=== PATIENT | female | born 1970 | race Hispanic/Latino ===

== ENCOUNTER 2018-06-25 08:03 | Inpatient (IN) | payer BC, OTHER ==
[2018-06-25 08:03] VITALS: BMI 32.4
--- NOTE | 2018-06-25 08:37 | ED PDOC ---
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 Patient states she believes it to be gallstones, which she has had in the past, but have usually passed naturally. Patient states that the pain radiates to her back and right shoulder. Patient denies vomiting, but has been dry heaving, secondary to her inability to eat. Patient states her first experience with this pain was 20 years ago, and has been intermittent ever since. Patient states she took 600mg ibuprofen for pain at 6 am. Patient denies any fever, chills, headache, dizziness, chest pain, shortness of breath, cough, vomiting, diarrhea, neck pain, urinary/bowel changes, or any other complaint. Time/Duration: 1-3 hours Symptom Onset: Gradual Symptom Course: Unchanged Quality: Cramping Context: Home Past Medical History - Provider Review Nursing Documentation Reviewed: Yes - Infectious Disease Hx of Infectious Diseases: None - Tetanus Immunization Tetanus Immunization: Up to Date - Reproductive Menopause: No - Past Medical History Past Medical History: No Previous - Cardiac Hx Cardiac Disorders: No Hx Pacemaker: No - Pulmonary Hx Respiratory Disorders: No - Neurological Hx Neurological Disorder: No - HEENT Hx HEENT Disorder: No - Renal Hx Renal Disorder: No - Hematological/Oncological Hx Blood Disorders: No - Musculoskeletal/Rheumatological Hx Musculoskeletal Disorders: No - Gastrointestinal Other/Comment: diverculosis - Genitourinary/Gynecological Hx Genitourinary Disorders: No - Psychiatric Hx Emotional Abuse: No Hx Physical Abuse: No Hx Substance Use: No - Surgical History Hx Tubal Ligation: Yes (essure) Other/Comment: essure - Anesthesia Hx Anesthesia Reactions: No - Suicidal Assessment Feels Threatened In Home Enviroment: No Family/Social History - Physician Review Nursing Documentation Reviewed: Yes Family/Social History: No Known Family HX Smoking Status: Unknown If Ever Smoked Hx Alcohol Use: Yes (SOCIALLY) Hx Substance Use: No Hx Substance Use Treatment: No Allergies/Home Meds Allergies/Adverse Reactions: Allergies No Known Allergies Allergy (Verified 06/11/13 12:29) Home Medications: Home Meds Medication Instructions Recorded Confirmed Iron 65 65 mg PO DAILY 06/25/18 06/25/18 Magnesium 400 400 mg PO HS 06/25/18 06/25/18 Multivitamin Therapeutic Tab 1 tab PO DAILY 06/25/18 06/25/18 [Thera Tab] Review of Systems - Physician Review All systems were reviewed & negative as marked: Yes - Review of Systems Constitutional: Normal. absent: Fevers, Night Sweats Eyes: Normal ENT: Normal Respiratory: Normal. absent: SOB, Cough Cardiovascular: Normal. absent: Chest Pain Gastrointestinal: Normal, Appetite Changes (Has been unable to eat since onset of pain). absent: Diarrhea Genitourinary Female: Normal. absent: Urine Output Changes Musculoskeletal: Normal, Back Pain (Pain radiates from RUQ to back). absent: Neck Pain Skin: Normal Neurological: Normal. absent: Headache, Dizziness Endocrine: Normal Hemo/Lymphatic: Normal Psychiatric: Normal Physical Exam - Physical Exam Narrative Physical Exam (Text): 06/25/18 08:40 Gen: VS reviewed, alert, well developed, well nourished, nontoxic, mild distress. ENT: normal pharynx. Eye: EOMI, PERRL. Neck: no JVD, supple, no adenopathy. CV: regular rate, regular rhythm, no rubs, no murmur, no gallops, S1, S2, pulses equal and strong. Pulm: no distress, clear to auscultation, no wheeze, no rhonchi, breath sounds equal, no rales. Abd: no guarding, no rebound, no rigidity, mild to moderate RUQ tenderness, positive Brar's sign Ext: no edema. Skin: good color, no rash, no cyanosis. Psych: responds appropriately to questions, normal affect. Neuro: oriented x 3, CN2-12 intact grossly, motor intact, sensation intact. Vital Signs Reviewed: Yes Vital Signs Temp Pulse Resp BP Pulse Ox 06/25/18 11:40 98.0 F 70 18 100 06/25/18 11:39 98.0 F 70 18 128/77 100 06/25/18 08:19 98.2 F 66 18 131/84 100 Temperature: Afebrile Blood Pressure: Normal Pulse: Regular Respiratory Rate: Normal Appearance: Positive for: Well-Appearing, Non-Toxic, Comfortable Pain Distress: None Mental Status: Positive for: Alert and Oriented X 3 Medical Decision Making ED Course and Treatment: 06/25/18 08:42 Impression: 47 year old female presents to the emergency department with RUQ pain. Plan: -- Labs -- US -- Reassess and disposition Prior Visits: Notes and results from previous visits were reviewed. Progress Notes: 06/25/18 10:38 awaiting call from pcp dr. dowd. case discussed with surgical product sales consultant and will see pt in consultation. 06/25/18 11:[address] dowd, patient to be admitted for acute cholecystitis. Dr. Dowd would like Dr. Peters for GI consult and is ok with Dr. Bo for surgery consult. - Lab Interpretations Lab Results: 06/25/18 08:46 06/25/18 08:46 Lab Results 06/25/18 11:02: Blood Type A POSITIVE, Antibody Screen Negative, BBK History Checked No verified bt 06/25/18 08:46: Sodium 141, Potassium 4.0, Chloride 106, Carbon Dioxide 24, Anion Gap 15, BUN 12, Creatinine 0.5 L, Est GFR ( Amer) > 60, Est GFR ( Non-Af Amer) > 60, Random Glucose 93, Calcium 8.6, Total Bilirubin 0.4, AST 21, ALT 28, Alkaline Phosphatase 46, Total Protein 6.5, Albumin 3.7, Globulin 2.8, Albumin/Globulin Ratio 1.3, Lipase 39 06/25/18 08:46: WBC 10.5, RBC 4.79, Hgb 11.4 L, Hct 36.1, MCV 75.4 L, MCH 23.8 L , MCHC 31.6, RDW 17.7 H, Plt Count 271, MPV 9.8, Gran % 77.0 H, Lymph % (Auto) 11.7 L, Karnes % (Auto) 9.3 H, Eos % (Auto) 1.8, Baso % (Auto) 0.2, Gran # 8.11 H , Lymph # (Auto) 1.2, Karnes # (Auto) 1.0 H, Eos # (Auto) 0.2, Baso # (Auto) 0.02 - RAD Interpretation Narrative RAD Interpretations (Text): 06/25/18 10:45 Gallbladder US reviewed by radiologist, shows: Cholelithiasis. Presumptive evidence for acute cholecystitis. Radiology Orders: 06/25/18 08:33 GALLBLADDER & COMMON DUCT [US] Stat Corn Husk Baler: Radiologist - EKG Interpretation EKG Interpretation (Text): 06/25/18 11:40 1134: sinus gema at 55 bpm, nml qrs, nml axis, no acute sttw abn Interpreted by ED Physician: Yes - Medication Orders Current Medication Orders: Hydromorphone HCl (Dilaudid) 0.5 mg IVP Q4H PRN PRN Reason: Pain, moderate (4-7) Last Admin: 06/25/18 15:29 Dose: 0.5 mg RONNIE Pain Assessment Document 06/25/18 15:29 LMN (Rec: 06/25/18 15:29 LMN [id number]) Pain Reassessment Is this a pain reassessment? No Presence of Pain Presence of Pain Yes IVP Administration Document 06/25/18 15:29 LMN (Rec: 06/25/18 15:29 LMN [id number]) Charges for Administration # of IVP Administrations 1 Re-Assess: RONNIE Pain Assessment Document 06/25/18 16:29 LMN (Rec: 06/25/18 17:07 LMN [id number]) Pain Reassessment Is this a pain reassessment? Yes Presence of Pain Presence of Pain Yes Pain Scale Used Pain Scale Used Numeric Location Left, Right or Bilateral Right Upper or Lower Lower Pain Location Body Site Abdomen Back Description Description Constant Intensity of Pain at present 7 Pain Behavior Moaning Irritability Grasping Site Rubbing Site Facial Grimacing Alleviating Factors/Management Medication Techniques Pain not relieved and LIP/MD was No notified Lactated Ringer's (Lactated Ringer's) 1,000 mls @ 125 mls/hr IV .Q8H BIJAN Last Admin: 06/25/18 13:51 Dose: 125 mls/hr eMAR Start Stop Document 06/25/18 13:51 LMN (Rec: 06/25/18 13:52 LMN [id number]) Intravenous Solution Start Date 06/25/18 Start Time 13:52 Ondansetron HCl (Zofran Inj) 4 mg IVP Q6 PRN PRN Reason: Nausea/Vomiting Discontinued Medications Sodium Chloride (Sodium Chloride 0.9%) 1,000 mls @ 150 mls/hr IV .Q6H40M BIJAN Last Admin: 06/25/18 11:32 Dose: 150 mls/hr eMAR Start Stop Document 06/25/18 11:32 [email or web address] (Rec: 06/25/18 11:33 [email or web address] [id number]) Intravenous Solution Start Date 06/25/18 Start Time 11:33 Ampicillin Sodium/Sulbactam (Sodium 3 gm/ Sodium Chloride) 100 mls @ 100 mls/ hr IVPB STAT STA PRN Reason: Protocol Stop: 06/25/18 11:32 Last Admin: 06/25/18 11:28 Dose: 100 mls/hr eMAR Start Stop Document 06/25/18 11:28 [email or web address] (Rec: 06/25/18 11:29 [email or web address] [id number]) Intravenous Solution Start Date 06/25/18 Start Time 11:29 Ketorolac Tromethamine (Toradol) 30 mg IVP STAT STA Stop: 06/25/18 09:24 Last Admin: 06/25/18 09:30 Dose: 30 mg MAR Pain Assessment Document 06/25/18 09:30 [email or web address] (Rec: 06/25/18 11:29 [email or web address] [id number]) Pain Reassessment Is this a pain reassessment? No Sleep Is patient sleeping during reassessment? No Presence of Pain Presence of Pain Yes Pain Scale Used Pain Scale Used Numeric Location Left, Right or Bilateral Right Upper or Lower Upper Pain Location Body Site Abdomen Description Description Constant Intensity of Pain at present 8 Pain Behavior Facial Grimacing Alleviating Factors/Management Medication Techniques Alleviating Factors Medication IVP Administration Document 06/25/18 09:30 [email or web address] (Rec: 06/25/18 11:29 [email or web address] [id number]) Charges for Administration # of IVP Administrations 1 Morphine Sulfate (Morphine) 2 mg IVP Q4 PRN PRN Reason: Pain, severe (8-10) Last Admin: 06/25/18 12:50 Dose: 2 mg MAR Pain Assessment Document 06/25/18 12:50 LMN (Rec: 06/25/18 12:51 LMN [id number]) Pain Reassessment Is this a pain reassessment? No Presence of Pain Presence of Pain Yes Pain Scale Used Pain Scale Used Numeric Location Left, Right or Bilateral Right Upper or Lower Lower Pain Location Body Site Abdomen Back Description Description Constant Intensity of Pain at present 9 Pain Behavior Moaning Irritability Rubbing Site Perspiration Facial Grimacing Alleviating Factors/Management Medication Techniques IVP Administration Document 06/25/18 12:50 LMN (Rec: 06/25/18 12:51 LMN [id number]) Charges for Administration # of IVP Administrations 1 Re-Assess: RONNIE Pain Assessment Document 06/25/18 13:50 LMN (Rec: 06/25/18 13:52 LMN [id number]) Pain Reassessment Is this a pain reassessment? Yes Presence of Pain Presence of Pain No Ondansetron HCl (Zofran Inj) 4 mg IVP STAT STA Stop: 06/25/18 12:36 Last Admin: 06/25/18 12:45 Dose: 4 mg IVP Administration Document 06/25/18 12:45 LMN (Rec: 06/25/18 12:45 LMN [id number]) Charges for Administration # of IVP Administrations 1 - Scribe Statement The provider has reviewed the documentation as recorded by the Scribe Nhan Romero All medical record entries made by the Scribe were at my direction and personally dictated by me. I have reviewed the chart and agree that the record accurately reflects my personal performance of the history, physical exam, medical decision making, and the department course for this patient. I have also personally directed, reviewed, and agree with the discharge instructions and disposition. Disposition/Present on Arrival - Present on Arrival Any Indicators Present on Arrival: No History of DVT/PE: No History of Uncontrolled Diabetes: No Urinary Catheter: No History of Decub. Ulcer: No History Surgical Site Infection Following: None - Disposition Have Diagnosis and Disposition been Completed?: Yes Diagnosis: Cholelith Disposition: HOSPITALIZED Disposition Time: 17:33 Patient Plan: ICU Patient Problems: Current Active Problems Problem Status Onset Sepsis Acute Condition: FAIR
[2018-06-25 08:56] LABS: BASO # 0.02 K/mm3 (0.0-2.0); BASO % 0.2 % (0.0-3.0); EOS # 0.2 (0.0-0.7); EOS % 1.8 % (1.5-5.0); GRAN # 8.11 (1.4-6.5); HEMOGLOBIN 11.4 g/dL (12.0-16.0); LYMPH # 1.2 (1.2-3.4); LYMPH % 11.7 % (22.0-35.0); MEAN CELL VOLUME 75.4 fl (80.0-105.0); MEAN CORPUSCULAR HEMOGLOBIN 23.8 pg (25.0-35.0); MEAN CORPUSCULAR HGB CONC 31.6 g/dl (31.0-37.0); MEAN PLATELET VOLUME 9.8 fl (7.0-11.0); MONO % 9.3 % (1.0-6.0); RBC 4.79 10^6/uL (3.5-6.1); RED CELL DISTRIBUTION WIDTH 17.7 % (11.5-14.5); WHITE BLOOD COUNT 10.5 10^3/ul (4.5-11.0)
[2018-06-25 09:08] LABS: ALB/GLOB RATIO 1.3 (1.1-1.8); ALBUMIN 3.7 g/dL (3.0-4.8); ALT/SGPT 28 U/L (7-56); AST/SGOT 21 U/L (14-36); BLOOD UREA NITROGEN 12 mg/dL (7-21); CALCIUM 8.6 mg/dL (8.4-10.5); GFR AFRICAN-AMERICAN > 60; GFR NON-AFRICAN AMERICAN > 60; LIPASE 39 U/L (23-300)
--- NOTE | 2018-06-25 10:15 | US ---
Date of service: 06/25/2018 HISTORY: pain, hx gllastones COMPARISON: None. TECHNIQUE: Sonographic evaluation of the right upper quadrant of the abdomen. FINDINGS: LIVER: Measures 17.3 cm in length. Patent portal vein. Portal venous flow: Hepatopetal. Unremarkable echogenicity of the liver parenchyma. No mass. No intrahepatic bile duct dilatation. GALLBLADDER: Cholelithiasis. Gallbladder wall edema and positive sonographic Brar's sign. Pericholecystic fluid identified. 3.3 cm stone lodged in the gallbladder neck. COMMON BILE DUCT: Measures 7.8 mm. No stones. No dilatation. PANCREAS: Unremarkable as visualized. No mass. No ductal dilatation. RIGHT KIDNEY: Measures 4.8 x 12.3 cm in length. Normal echogenicity. No calculus, mass, or hydronephrosis. AORTA: No aneurysmal dilatation. IVC: Unremarkable. OTHER FINDINGS: None . IMPRESSION: Cholelithiasis. Presumptive evidence for acute cholecystitis.
[2018-06-25] MEDS ORDERED: Sodium Chloride 0.9% 1,000 ML IV SCH (10:45)
[2018-06-25] MEDS ORDERED: Morphine 2 mg/ml ISec IVP PRN (12:37)
--- NOTE | 2018-06-25 12:55 | CP.PCM.CON ---
History of Present Illness - History of Present Illness History of Present Illness: HPI: Patient is a 47y.o. female with PMH of cholelithiasis who presents complaining of RUQ abdominal pain. She states the onset of pain was two nights ago. She denies eating a meal prior to the onset, and denies any aggravating factors. She describes the pain as intermittent, 8/10 in severity, localized to the RUQ and nonradiating. She reports multiple prior occurrences of abdominal pain similar to this episode. She has had around 5 episodes over the past 19 years. She complains of nausea and retching. She denies fevers, chills, constipation, or diarrhea. PMHx: cholelithiasis, diverticulosis, iron def. anemia PSurgHx: abdominoplasty (2003), R sided lumpectomy for lipoma, 2 C-sections Medications: iron supplement Allergies: NKDA Social: former smoker, occasional alcohol use, denies illicit drug use Family Hx: mother of colon cancer (age 65) In the ED, pt received Toradol for pain control, IVF, and Unasyn. Ultrasound demonstrated 3.3 cm stone in gallbladder neck, common bile duct 7.8 mm, pericholecystic fluid, pos sonographic Brar's sign, and gallbladder wall edema , suggestive of acute cholecystitis. Review of Systems - Constitutional Constitutional: absent: Chills, Fever - Cardiovascular Cardiovascular: absent: Chest Pain - Respiratory Respiratory: absent: Dyspnea - Gastrointestinal Gastrointestinal: Abdominal Pain, Nausea. absent: Constipation, Diarrhea, Vomiting Past Patient History - Tetanus Immunizations Tetanus Immunization: Up to Date - Past Social History Smoking Status: Unknown If Ever Smoked - CARDIAC Hx Cardiac Disorders: No Hx Pacemaker: No - PULMONARY Hx Respiratory Disorders: No - NEUROLOGICAL Hx Neurological Disorder: No - HEENT Hx HEENT Problems: No - RENAL Hx Chronic Kidney Disease: No - HEMATOLOGICAL/ONCOLOGICAL Hx Blood Disorders: No - MUSCULOSKELETAL/RHEUMATOLOGICAL Hx Musculoskeletal Disorders: No - GASTROINTESTINAL Other/Comment: diverculosis - GENITOURINARY/GYNECOLOGICAL Hx Genitourinary Disorders: No - PSYCHIATRIC Hx Emotional Abuse: No Hx Physical Abuse: No Hx Substance Use: No - SURGICAL HISTORY Hx Tubal Ligation: Yes (essure) Other/Comment: essure - ANESTHESIA Hx Anesthesia Reactions: No Meds Allergies/Adverse Reactions: Allergies Allergy/AdvReac Type Severity Reaction Status Date / Time No Known Allergies Allergy Verified 06/11/13 12:29 - Medications Medications: Current Medications Sodium Chloride (Sodium Chloride 0.9%) 1,000 mls @ 150 mls/hr IV .Q6H40M BIJAN Last Admin: 06/25/18 11:32 Dose: 150 mls/hr Ketorolac Tromethamine (Toradol) 30 mg IVP Q8H PRN PRN Reason: Pain, moderate (4-7) Morphine Sulfate (Morphine) 2 mg IVP Q4 PRN PRN Reason: Pain, severe (8-10) Ondansetron HCl (Zofran Inj) 4 mg IVP Q6 PRN PRN Reason: Nausea/Vomiting Physical Exam - Constitutional Appears: Non-toxic, No Acute Distress - Head Exam Head Exam: ATRAUMATIC, NORMAL INSPECTION, NORMOCEPHALIC - Eye Exam Eye Exam: EOMI, Normal appearance, PERRL. absent: Scleral icterus - ENT Exam ENT Exam: Mucous Membranes Moist, Normal Exam - Neck Exam Neck exam: Positive for: Full Rom, Normal Inspection - Respiratory Exam Respiratory Exam: Clear to Auscultation Bilateral, NORMAL BREATHING PATTERN. absent: Rales, Rhonchi, Wheezes, Respiratory Distress - Cardiovascular Exam Cardiovascular Exam: REGULAR RHYTHM, +S1, +S2 - GI/Abdominal Exam GI & Abdominal Exam: Normal Bowel Sounds, Soft, Tenderness. absent: Distended, Rebound Additional comments: Positive Brar's Sign; tenderness to palpation in RUQ, no rebound tenderness - Extremities Exam Extremities exam: Positive for: full ROM, normal capillary refill, normal inspection, pedal pulses present. Negative for: pedal edema - Back Exam Back exam: FULL ROM, NORMAL INSPECTION - Neurological Exam Neurological exam: Alert, CN II-XII Intact, Oriented x3 - Skin Skin Exam: Dry, Intact, Normal Color, Warm Results - Vital Signs Recent Vital Signs: Last Vital Signs Temp 98.0 F 06/25/18 11:40 Pulse 70 06/25/18 11:40 Resp 18 06/25/18 11:40 BP 128/77 06/25/18 11:39 Pulse Ox 100 06/25/18 11:40 - Labs Result Diagrams: 06/25/18 08:46 06/25/18 08:46 Assessment & Plan - Assessment and Plan (Free Text) Assessment: 47F with PMH of cholelithiasis presents with RUQ abdominal pain. Ultrasound findings suggestive of acute cholecystitis. Plan: -Pt NPO -C/w IVF hydration -Toradol d/c'd, morphine prn for severe pain -Zofran for nausea -Plan for OR for lap blossom -Further recs per Dr. Betzy Hamilton, DO PGY-1
[2018-06-25] MEDS: Lactated Ringer's 1,000 ML IV SCH (13:51)
--- NOTE | 2018-06-25 14:42 | CP.PCM.CON ---
History of Present Illness - History of Present Illness History of Present Illness: Seen and examined at bedside this afternoon, chart reviewed. Request for consult is for Cholelithiasis. HPI: This ia a 47 year old female with PMH of cholelithiasis, came to ER with c/ o RUQ abdominal pain that started two night ago. Denies post prandial pain. Patient endorses that she has had pain similar to this in the past but never went for intervention. She does have N/V, no fever or chills, change in bowel habits(diarrhea or constipation)Abdominal US done in the ER reveal 3.3 cm stone in gallbladder neck, common bile duct 7.8 mm, pericholecystic fluid, pos sonographic Brar's sign, and gallbladder wall edema, suggestive of acute cholecystitis. PMH: cholelithiasis, diverticulosis, Anemia, iron def PSH: abdominoplasty, R sided lumpectomy for lipoma,C-sections x2 Allergies: NKDA MEDS: reviewed as per MAR Social: former smoker, social alcohol use, denies illicit drug use Family Hx: mother of colon cancer ROS: systems reviewed with positive findings, see HPI Past Patient History - Infectious Disease Hx of Infectious Diseases: None - Tetanus Immunizations Tetanus Immunization: Up to Date - Past Social History Smoking Status: Unknown If Ever Smoked - CARDIAC Hx Cardiac Disorders: No Hx Pacemaker: No - PULMONARY Hx Respiratory Disorders: No - NEUROLOGICAL Hx Neurological Disorder: No - HEENT Hx HEENT Problems: No - RENAL Hx Chronic Kidney Disease: No - HEMATOLOGICAL/ONCOLOGICAL Hx Blood Disorders: No - MUSCULOSKELETAL/RHEUMATOLOGICAL Hx Musculoskeletal Disorders: No - GASTROINTESTINAL Other/Comment: diverculosis - GENITOURINARY/GYNECOLOGICAL Hx Genitourinary Disorders: No - PSYCHIATRIC Hx Emotional Abuse: No Hx Physical Abuse: No Hx Substance Use: No - SURGICAL HISTORY Hx Tubal Ligation: Yes (essure) Other/Comment: essure - ANESTHESIA Hx Anesthesia Reactions: No Meds Allergies/Adverse Reactions: Allergies Allergy/AdvReac Type Severity Reaction Status Date / Time No Known Allergies Allergy Verified 06/11/13 12:29 - Medications Medications: Current Medications Lactated Ringer's (Lactated Ringer's) 1,000 mls @ 125 mls/hr IV .Q8H BIJAN Last Admin: 06/25/18 13:51 Dose: 125 mls/hr Morphine Sulfate (Morphine) 2 mg IVP Q4 PRN PRN Reason: Pain, severe (8-10) Last Admin: 06/25/18 12:50 Dose: 2 mg Ondansetron HCl (Zofran Inj) 4 mg IVP Q6 PRN PRN Reason: Nausea/Vomiting Physical Exam - Constitutional Appears: No Acute Distress - Head Exam Head Exam: NORMOCEPHALIC - Eye Exam Eye Exam: Normal appearance. absent: Scleral icterus - ENT Exam ENT Exam: Mucous Membranes Moist - Neck Exam Neck exam: Positive for: Normal Inspection - Respiratory Exam Respiratory Exam: Clear to Auscultation Bilateral, NORMAL BREATHING PATTERN. absent: Respiratory Distress - Cardiovascular Exam Cardiovascular Exam: +S1, +S2 - GI/Abdominal Exam GI & Abdominal Exam: Normal Bowel Sounds, Soft, Tenderness (mild tenderness to RUQ, patient was just medicated). absent: Guarding, Organomegaly, Rebound - Extremities Exam Extremities exam: Positive for: pedal pulses present. Negative for: calf tenderness, pedal edema - Neurological Exam Neurological exam: Alert, Oriented x3 - Skin Skin Exam: Dry, Warm Results - Vital Signs Recent Vital Signs: Last Vital Signs Temp 98.0 F 06/25/18 11:40 Pulse 70 06/25/18 11:40 Resp 18 06/25/18 11:40 BP 128/77 06/25/18 11:39 Pulse Ox 100 06/25/18 11:40 - Labs Result Diagrams: 06/25/18 08:46 06/25/18 08:46 Assessment & Plan - Assessment and Plan (Free Text) Assessment: ASSESSMENT: RUQ abdominal pain Cholelitiaisis with probable Cholecystitis noted on US PLAN: NPO, continue IVF received dose of Ampicillin monitor lft, H/H Zofran prn pain mgt plan for OR later today as per surgery Thank you for this consult and for allowing us to participate in your patient care, further recommendation based upon clinical course. Discussed w/ Dr. Lloyd covering Dr. Peters.
[2018-06-25] MEDS ORDERED: HYDROmorphone 0.5 mg/0.5 ml ISec IVP PRN (15:13)
--- NOTE | 2018-06-25 17:26 | CARD ---
APPROVED REPORT Date of service: 06/25/2018 EKG Measurement Heart [id number] <Conclusion> Sinus bradycardia Otherwise normal ECG
[2018-06-25] MEDS ORDERED: HYDROmorphone 0.5 mg/0.5 ml ISec IVP STA (17:34)
[2018-06-25] MEDS: HYDROmorphone 0.5 mg/0.5 ml ISec IVP PRN ×2 (20:20→23:38)
[2018-06-26] MEDS: HYDROmorphone 0.5 mg/0.5 ml ISec IVP PRN ×2 (03:33→06:07)
[2018-06-26] MEDS: Lactated Ringer's 1,000 ML IV SCH ×2 (05:20→05:21)
[2018-06-26] MEDS ORDERED: Bupivacaine 0.5% Inj(30mL) ONE (07:10)
[2018-06-26] MEDS ORDERED: Iohexol 240 (50 ml) ONE (07:11)
[2018-06-26] MEDS ORDERED: Propofol 10 mg/ml Inj (20 ML) ONE (07:23)
[2018-06-26] MEDS ORDERED: Midazolam 2 MG/2 ML VIAL ONE (07:23)
[2018-06-26] MEDS ORDERED: Rocuronium 10 mg/ml (5 ml) ONE (07:30)
[2018-06-26] MEDS ORDERED: Bupivacaine 0.5% Inj(30mL) IJ ONE ×2 (08:15)
[2018-06-26] MEDS ORDERED: Neostigmine Methylsulfate 3mg/3ml Syringe IV ONE (08:21)
--- NOTE | 2018-06-26 08:27 | CON ---
Copied To: Venkatesh Lloyd MD Attending MD: Venkatesh Lloyd MD ADDENDUM DATE: 06/25/2018 GASTROENTEROLOGY CONSULTATION This consult is for Dr. Peters, Dr. Llyod covering. I have personally examined this patient. This is an addendum to a consultation performed by Aliza Martínez APN. 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 The patient has had episodes of biliary colic in the past. Ultrasound in the emergency room revealed a stone in the gallbladder neck. Her liver enzymes are normal. Ultrasound also showed gallbladder wall thickening and pericholecystic fluid, all consistent with acute cholecystitis. Recommendations are for cholecystectomy. Venkatesh Lloyd MD
[2018-06-26] MEDS ORDERED: Iohexol 240 MG/100 ML SOL IJ ONE (09:00)
--- NOTE | 2018-06-26 09:23 | HP ---
Copied To: Dario Dowd MD Attending MD: Dario Dowd MD HISTORY OF PRESENT ILLNESS: This is a 47-year-old white female with history of cholelithiasis with multiple episodes of acute gallbladder colic over the last 3 weeks. The patient developed into severe right upper quadrant pain with nausea and vomiting, which did not resolve. The patient also was found to have impacted cystic gallbladder stone with acute cholecystitis. The patient is in the preop area being readied for surgery with Dr. Bo. PHYSICAL EXAMINATION: GENERAL: She is a well-developed, well-nourished white female, in no apparent distress this morning. HEENT: Essentially within normal limits. HEART: Regular sinus rhythm. CHEST: Clear to auscultation and percussion. EXTREMITIES: Without cyanosis, clubbing or edema. ABDOMEN: Tender in the right upper quadrant. Positive Brar sign. VITAL SIGNS: The patient is afebrile. LABORATORY DATA: Unremarkable. Normal liver enzymes. White count is 10,500. Temperature is 98.3. IMPRESSION: Acute choledocholithiasis and cholecystitis. Dario Dowd MD
[2018-06-26] MEDS ORDERED: HYDROmorphone 0.5 mg/0.5 ml ISec IVP PRN (10:10)
--- NOTE | 2018-06-26 10:12 | PCM.SURG1 ---
Surgeon's Initial Post Op Note - Surgeon's Notes Surgeon: Dr. Bo Pin Drafter: Dr. Rabago Type of Anesthesia: General Endo Pre-Operative Diagnosis: Acute Cholecystitis Operative Findings: See operative dictation Post-Operative Diagnosis: Acyte cholecystitis Operation Performed: Laparoscopic cholecystectomy Specimen/Specimens Removed: Gallbladder Estimated Blood Loss: EBL {In ML}: 20 Blood Products Given: N/A Drains Used: No Drains Post-Op Condition: Good Date of Surgery/Procedure: 06/26/18 Time of Surgery/Procedure: 10:11
[2018-06-26] MEDS ORDERED: Lactated Ringer's 1,000 ML IV SCH (10:15)
--- NOTE | 2018-06-26 10:38 | RAD ---
Date of service: 06/26/2018 PROCEDURE: Operative cholangiogram HISTORY: laproscopic cholangiogram COMPARISON: TECHNIQUE: 24.2 seconds of fluoro time. Cumulative dose 7.06 mGy. Four images were submitted FINDINGS: There are no filling defects seen in the common duct. Contrast flows into the duodenum without obstruction IMPRESSION: As above
[2018-06-26] MEDS ORDERED: Oxycodone/Acetaminophen 5/325 mg Tab PO PRN (11:34)
--- NOTE | 2018-06-26 12:36 | CP.PCM.PN ---
Subjective - Date & Time of Evaluation Date of Evaluation: 06/26/18 Time of Evaluation: 12:29 - Subjective Subjective: S&E at bedside, chart reviewed, S/p lap cholecystectomy with IOC, show no filling defect in CBD, contrast flow through duodenum with no obstruction. No N/ V , fever or chills. Some post op abdominal discomfort but improvement compared to yesterday as per patient. Objective - Vital Signs/Intake and Output Vital Signs (last 24 hours): Temp Pulse Resp BP Pulse Ox 98 F 54 L 18 100/58 L 95 06/26/18 10:49 06/26/18 10:49 06/26/18 10:49 06/26/18 10:49 06/26/18 10:49 Intake and Output: 06/26/18 06/26/18 06:59 18:59 Intake Total 0 Balance 0 - Medications Medications: Current Medications Cephalexin Monohydrate (Keflex) 500 mg PO Q6 BIJAN PRN Reason: Protocol Hydromorphone HCl (Dilaudid) 1 mg IVP Q3H PRN PRN Reason: Pain, moderate (4-7) Last Admin: 06/26/18 06:07 Dose: 1 mg Lactated Ringer's (Lactated Ringer's) 1,000 mls @ 125 mls/hr IV .Q8H BIJAN Last Admin: 06/26/18 05:21 Dose: 125 mls/hr Metoclopramide HCl (Reglan) 10 mg IV ONCE PRN PRN Reason: Nausea/Vomiting Ondansetron HCl (Zofran Inj) 4 mg IVP Q6 PRN PRN Reason: Nausea/Vomiting Last Admin: 06/26/18 06:27 Dose: 4 mg Ondansetron HCl (Zofran Inj) 4 mg IVP Q6H PRN PRN Reason: Nausea/Vomiting Oxycodone/Acetaminophen (Percocet 5/325 Mg Tab) 1 tab PO Q6H PRN PRN Reason: Pain, moderate (4-7) Stop: 06/29/18 11:35 - Constitutional Appears: No Acute Distress - Head Exam Head Exam: NORMOCEPHALIC - Eye Exam Eye Exam: Normal appearance. absent: Scleral icterus - ENT Exam ENT Exam: Mucous Membranes Moist - Neck Exam Neck Exam: Normal Inspection - Cardiovascular Exam Cardiovascular Exam: +S1, +S2 - GI/Abdominal Exam GI & Abdominal Exam: Soft, Normal Bowel Sounds Additional comments: laproscopic sites dry and intact - Extremities Exam Extremities Exam: absent: Calf Tenderness, Pedal Edema - Neurological Exam Neurological Exam: Alert, Awake, Oriented x3 - Skin Skin Exam: Dry, Warm Assessment and Plan - Assessment and Plan (Free Text) Assessment: ASSESSMENT: RUQ abdominal pain Cholelitiaisis with probable Cholecystitis noted on US PLAN: diet as per surgery, recommend lowfat diet on oral antibiotics monitor lft, H/H Zofran prn pain mgt Discussed w/ Dr. Lloyd covering Dr. Peters.
--- NOTE | 2018-06-26 18:33 | PN ---
Copied To: Venkatesh Lloyd MD Attending MD: Venkatesh Lloyd MD DATE: 06/26/2018 SUBJECTIVE: The patient is lying in bed comfortable. She underwent a laparoscopic cholecystectomy with intraoperative cholangiogram this morning. She feels much better with resolution of her abdominal pain. She does complain of some discomfort at the laparoscopic puncture sites in her umbilicus and upper abdomen. PHYSICAL EXAMINATION VITAL SIGNS: Reveal temperature of 98, blood pressure 100/58, heart rate of 54. HEENT: Reveals sclerae to be white. Conjunctivae pink. NECK: Supple. CHEST: Lungs are clear. HEART: Reveals regular rate and rhythm. ABDOMEN: Soft, nontender. Laparoscopic puncture sites are clear without drainage. EXTREMITIES: Show no edema. LABORATORY DATA: No new laboratory data are available. IMPRESSION: Acute cholecystitis status post laparoscopic cholecystectomy with intraoperative cholangiogram. The intraoperative cholangiogram was negative for any filling defects. RECOMMENDATIONS: Advance diet as per Surgery. The patient is stable postop. Venkatesh Lloyd MD
[2018-06-27 07:04] LABS: HEMOGLOBIN 10.8 g/dL (12.0-16.0); MEAN CELL VOLUME 76.6 fl (80.0-105.0); MEAN CORPUSCULAR HEMOGLOBIN 23.6 pg (25.0-35.0); MEAN CORPUSCULAR HGB CONC 30.9 g/dl (31.0-37.0); MEAN PLATELET VOLUME 10.1 fl (7.0-11.0); RBC 4.57 10^6/uL (3.5-6.1); WHITE BLOOD COUNT 12.2 10^3/ul (4.5-11.0)
[2018-06-27 07:18] VITALS: BP 159/91; PULSE 69; RESP 20; TEMP 98.4; O2SAT 98
[2018-06-27 07:37] LABS: ALB/GLOB RATIO 1.1 (1.1-1.8); ALBUMIN 3.4 g/dL (3.0-4.8); ALT/SGPT 48 U/L (7-56); AST/SGOT 47 U/L (14-36); BLOOD UREA NITROGEN 12 mg/dL (7-21); CALCIUM 8.6 mg/dL (8.4-10.5); GFR AFRICAN-AMERICAN > 60; GFR NON-AFRICAN AMERICAN > 60
--- NOTE | 2018-06-27 10:58 | OP ---
Copied To: Sky Bo MD Attending MD: Sky Bo MD PROCEDURE DATE: 06/26/2018 PREOPERATIVE DIAGNOSIS: Acute cholecystitis. POSTOPERATIVE DIAGNOSIS: Acute cholecystitis. PROCEDURE PERFORMED: Laparoscopic cholecystectomy with intraoperative cholangiogram. SURGEON: Sky Bo MD. OPTIC FIBRE DRAWER: Dr. Rabago. ANESTHESIA: General endotracheal anesthesia. ANESTHESIOLOGIST: Dr. Haider. ESTIMATED BLOOD LOSS: Minimal. SPECIMEN: Gallbladder with gallstones. INDICATIONS: Patient is a 47-year-old female with history of recurrent right upper quadrant abdominal pain and known diagnosis of cholelithiasis. Apparently, over the past weekend, patient developed some nausea, vomiting and abdominal pain. Patient came into the hospital and was admitted and started on IV fluids and antibiotics and now taken to the operating room. DESCRIPTION OF PROCEDURE: Patient was brought to the operating room and placed on the operating table in a supine position. The patient was connected to the EKG, blood pressure, and pulse oximetry monitors. The patient then underwent general endotracheal anesthesia, was prepped and draped in the usual sterile fashion. First, a standard time-out procedure took place when everybody in the room agreed as to the patient's identity, diagnoses, and procedure to be performed. The operative plan as well as postoperative plan were discussed with OR team. Using lidocaine mixed with Marcaine, the area of the skin directly overlying the umbilicus was infiltrated in a vertical fashion and a small vertical incision above the umbilicus was made using #11 blade. This was done due to the fact that the patient had a previous abdominoplasty and reimplanting of umbilicus. Now, the incision was carried through subcutaneous fat with a clamp and the fascia was exposed. The skin was grabbed with two towel clips and elevated and a Veress needle was inserted through that incision into the abdominal cavity. After assuring adequate placement of Veress needle with saline, we then proceeded with infiltration of the abdomen. Once, the abdomen was completely insufflated and extended, a 12-mm trocar was inserted through that incision, and then carefully, the scope was inserted through the trocar in order to visualize the abdominal cavity. On initial evaluation it appeared there was some clear fluid throughout the edges of the abdomen and around the liver. There were also adhesions of the omentum to the distended gallbladder . I then placed a second 5-mm trocar in the subxiphoid position and carefully proceeded with dissection of the omental adhesions. The infundibulum was exposed, grabbed and elevated and carefully, the peritoneum was taken off the area of the cystic duct. The cystic duct lymph node was exposed and the cystic duct itself was carefully from the surrounding inflamed tissues. The cystic artery, which was directly behind was also visualized and exposed. Now, the cystic duct was clipped proximally at its junction with gallbladder and a small incision was made on the side of it. A cholangiocatheter was inserted through that incision and through the cystic duct and under direct visualization with fluoroscopy, the cholangiogram was obtained. That showed prompt flow of dye into the entire biliary tree allowing us to visualize both left and right radicles of common bile duct as well as prompt emptying of the dye into the duodenum without any obstruction. At this point, the cystic duct catheter was removed and the cystic duct was clipped distally and transected. The cystic artery was also clipped and transected. Using electrocautery, the gallbladder was carefully detached from the liver until it was drained first in order to be able to grab it. The gallbladder itself appeared to contain almost clear bile, indicating possibility of hydrops of gallbladder. Once the gallbladder was completely detached from the liver bed, it was placed in the EndoCatch bag and removed through the periumbilical incision. This incision in the fascia had to be slightly enlarged, as there was a large stone within the gallbladder. Once the stone was removed to evaluate the gallbladder, the gallbladder was opened up and appeared to have a normal mucosa with a large hard stone measuring about 3 cm. Now, the abdominal cavity was reinflated and the right upper quadrant was copiously irrigated. All irrigant fluids were suctioned out. There was excellent hemostasis noted. We then released pneumoperitoneum and we removed the trocar. The wounds were closed using 0 Vicryl for the fascia, 3-0 Vicryl for subcutaneous tissue and 4-0 Monocryl for skin. A sterile Dermabond dressing was applied to the wound. Patient tolerated the procedure well and there were no complications. The patient was awakened, extubated and transferred to the Recovery Room for further observation. Sky Bo MD
--- NOTE | 2018-06-27 11:47 | CP.PCM.PN ---
Subjective - Date & Time of Evaluation Date of Evaluation: 06/27/18 Time of Evaluation: 09:20 - Subjective Subjective: General Surgery progress note for Dr. Bo. Pt seen and examined at bedside this morning. Tolerating diet well. Pt denies abdominal pain, SOB, or chest pain. Pt has no new complaints at this time. Objective - Vital Signs/Intake and Output Vital Signs (last 24 hours): Temp Pulse Resp BP Pulse Ox 98.4 F 69 20 159/91 H 98 06/27/18 06:00 06/27/18 06:00 06/27/18 06:00 06/27/18 06:00 06/27/18 06:00 Intake and Output: 06/27/18 06/27/18 06:59 18:59 Intake Total 1560 Balance 1560 - Labs Labs: 06/27/18 06:45 06/27/18 06:45 - Constitutional Appears: No Acute Distress - Head Exam Head Exam: ATRAUMATIC, NORMOCEPHALIC - ENT Exam ENT Exam: Mucous Membranes Moist - Neck Exam Neck Exam: Full ROM - Respiratory Exam Respiratory Exam: NORMAL BREATHING PATTERN. absent: Respiratory Distress, Stridor - Cardiovascular Exam Cardiovascular Exam: absent: Bradycardia, Tachycardia, JVD - GI/Abdominal Exam GI & Abdominal Exam: Soft. absent: Distended Additional comments: incisions clean dry and intact - Extremities Exam Extremities Exam: Full ROM, Normal Inspection - Neurological Exam Neurological Exam: Alert, Awake, Oriented x3 - Psychiatric Exam Psychiatric exam: Normal Affect, Normal Mood - Skin Skin Exam: Dry, Normal Color, Warm Assessment and Plan - Assessment and Plan (Free Text) Assessment: 47F s/p lap blossom, for acute cholecystitis, POD #1 Plan: -ok to dc from surgical standpoint -no heavy lifting for the next 3-4 weeks -follow up as out pt -PO Keflex 500mg TID for 5 days - pt seen with Dr. Betzy Price PGY-1
--- NOTE | 2018-06-27 11:56 | CP.PCM.PN ---
Subjective - Date & Time of Evaluation Date of Evaluation: 06/27/18 Time of Evaluation: 10:15 - Subjective Subjective: S&E at bedside, chart reviewed, POD #2 no acute overnight events. tolerating oral intake, no fever, chills, N/V or abdominal pain. No BM yet. Awaiting to go home. Objective - Vital Signs/Intake and Output Vital Signs (last 24 hours): Temp Pulse Resp BP Pulse Ox 98.4 F 69 20 159/91 H 98 06/27/18 06:00 06/27/18 06:00 06/27/18 06:00 06/27/18 06:00 06/27/18 06:00 Intake and Output: 06/27/18 06/27/18 06:59 18:59 Intake Total 1560 Balance 1560 - Labs Labs: 06/27/18 06:45 06/27/18 06:45 - Constitutional Appears: No Acute Distress - Head Exam Head Exam: NORMOCEPHALIC - Eye Exam Eye Exam: Normal appearance. absent: Scleral icterus - ENT Exam ENT Exam: Mucous Membranes Moist - Neck Exam Neck Exam: Normal Inspection - Respiratory Exam Respiratory Exam: Clear to Ausculation Bilateral, NORMAL BREATHING PATTERN. absent: Respiratory Distress - Cardiovascular Exam Cardiovascular Exam: +S1, +S2 - GI/Abdominal Exam GI & Abdominal Exam: Soft, Normal Bowel Sounds. absent: Guarding, Tenderness, Rebound Additional comments: lap site intact w/ dermabond - Extremities Exam Extremities Exam: absent: Calf Tenderness, Pedal Edema - Neurological Exam Neurological Exam: Alert, Awake, Oriented x3 - Skin Skin Exam: Dry, Warm Assessment and Plan - Assessment and Plan (Free Text) Assessment: ASSESSMENT: Resolved RUQ abdominal pain Cholelitiaisis with probable Cholecystitis noted on US, s/p Laproscopic cholecystectomy s/ IOC PLAN: tolerating regular recommend lowfat diet, dicuss w/ patient on oral antibiotics monitor lft, H/H for DC home today to FU with PCP and surgery outpatient. Discussed w/ Dr. Lloyd covering Dr. Peters.
--- NOTE | 2018-06-28 02:41 | DS ---
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 Bo yesterday. The patient is postop doing well. She is tolerating her diet well. She is passing gas. She is eating normally. Her abdomen is soft. Bowel sounds are normoactive. Her wounds are clean and dry. Chest is clear to auscultation and percussion. Heart examination, regular sinus rhythm. The patient will be discharged home in improved condition, did finish her course of p.o. antibiotics at home and to follow up as an outpatient. FINAL DISCHARGE DIAGNOSES: Acute choledocholithiasis and cholecystitis. Dario Dowd MD
== END 2018-06-27 10:48 | disposition home or self-care (01) | DRG 419 ==
LOC: ED 08:03 → ERH 11:13 → 5RSO 11:44
PROVIDERS: ADMIT Internal Medicine; ATTEND Internal Medicine
PROC: BF131ZZ Fluoroscopy of Gallbladder and Bile Ducts using Low Osmolar Contrast (ICD-10-PCS; 2018-06-26)
PROC: 0FT44ZZ Resection of Gallbladder, Percutaneous Endoscopic Approach (ICD-10-PCS; principal; 2018-06-26 07:30)
DX: K80.00 Calculus of gallbladder with acute cholecystitis without obstruction (principal); K57.90 Diverticulosis of intestine, part unspecified, without perforation or abscess without bleeding; D50.9 Iron deficiency anemia, unspecified; Z87.891 Personal history of nicotine dependence; Z80.0 Family history of malignant neoplasm of digestive organs